=== PATIENT | female | born 1990 | race Caucasian/White ===

== ENCOUNTER 2017-01-21 22:39 | Emergency (ER) | payer OTHER ==
[~2017-01-21] VITALS: Ht 170.2 cm; Wt 55.2 kg
[2017-01-21 22:54] VITALS: TEMP 37.2; Ht 170.2 cm; Wt 55.2 kg
[2017-01-21] MEDS ORDERED: SODIUM CHLORIDE 0.9% 1000ML 2,000 ML IV STA (23:36)
[2017-01-22 00:11] VITALS: O2SAT 99
[2017-01-22 00:22] LABS: BASO % 0.2 %; BASO ABS # 0.02 K/uL (0-0.2); COMPLETE YES; EOS % 0.7 %; HEMATOCRIT 39.9 % (37-47); IG% 0.4 %; LYMPH % 38.6 %; LYMPH ABS # 4.06 K/uL (1.2-3.4); MEAN CELL VOLUME 83.1 fL (80-100); MEAN CORPUSCULAR HEMOGLOBIN 29.4 pg (25-34); MEAN CORPUSCULAR HGB CONC 35.3 g/dl (32-36); MEAN PLATELET VOLUME 9.5 fL (7.4-10.4); MONO % 9.9 %; NEUT % 50.2 %; PLATELET COUNT 317 K/uL (130-400); WHITE BLOOD COUNT 10.52 K/uL (4.8-10.8)
[2017-01-22 00:33] LABS: URINE APPEARANCE CLEAR (CLEAR); URINE BILIRUBIN NEG (NEG); URINE COLOR YELLOW; URINE NITRITE NEG (NEG); URINE PH 7.5 (4.5-7.5); URINE SPECIFIC GRAVITY 1.013 (1.000-1.030); UROBILINOGEN NEG (NEG); ZZUR CULT IF INDIC CLEAN CATCH NO
[2017-01-22 00:34] LABS: MANUAL MICROSCOPIC REQUIRED? NO; REVIEW REQ? NO
[2017-01-22 00:49] LABS: BLOOD UREA NITROGEN 15 mg/dl (7-18); GLUCOSE 97 mg/dl (70-99)
[2017-01-22 00:50] LABS: ALT/SGPT 37 U/L (12-78); AST/SGOT 31 U/L (15-37); BUN/CREATININE RATIO 21.2 (10-20); CALCIUM 8.7 mg/dl (8.5-10.1); CARBON DIOXIDE 24 mmol/L (21-32); CHLORIDE 107 mmol/L (98-107); POTASSIUM 3.4 mmol/L (3.5-5.1); SODIUM 143 mmol/L (136-145)
[2017-01-22 00:55] LABS: ALKALINE PHOSPHATASE 49 U/L (45-117); CKMB/CK RATIO 0.5 (0-3.0)
[2017-01-22] MEDS ORDERED: PROG100C6 PO (01:16)
[2017-01-22] MEDS ORDERED: AMT50 PO (01:17)
[2017-01-22] MEDS ORDERED: ZOLP10TA PO (01:18)
[2017-01-22] MEDS ORDERED: MELA1TAB22 PO (01:19)
[2017-01-22] MEDS ORDERED: PYRI100T4 PO (01:19)
[2017-01-22] MEDS ORDERED: CHOL1000 PO (01:20)
[2017-01-22] MEDS ORDERED: OMEG10007 PO (01:21)
[2017-01-22] MEDS ORDERED: OPTIRAY 320 IV PRN (02:45)
[2017-01-22 03:28] VITALS: BP 120/81; PULSE 88; O2SAT 100
--- NOTE | 2017-01-22 05:28 | EMERGENCY ROOM VISIT NOTE ---
History Report prepared by Blessing: Berenice Betts Under the Supervision of: Dr. Ross Hall M.D. First contact with patient: 23:36 Chief Complaint: COUGH Stated Complaint: CHEST PAIN, DEHYDRATED- 4WKS Nursing Triage Summary: pt reports cold for last 3 weeks. On Prednisone. Developed chest pain on Wednesday, reports she was coughing felt pop in chest. seen at Urgent care Tachycardia and dehydration. 4 weeks History of Present Illness The patient is a 4 week 26 year old female who presents to the Emergency Room with complaints of worsening rib pain over the past 3.5 weeks. The patient states that she has had cold-like symptoms over the past several weeks and has experienced a cough, right sided rib pain and intermittent shortness of breath since the onset of her symptoms. 5 days ago, she was started on Amoxicillin and Prednisone at Urgent Care. Her chest pain worsened 2 days ago so she went to Urgent Care again and was prescribed Vicodin. She was given antibiotic and steroid injections. She felt that her symptoms were improving some until today, when she coughed and felt something "pop" in her ribs. She also developed some left sided rib pain today. Since then, she has felt breathless and occasionally feels her heart racing. She was seen at [facility] and had a chest x-ray. Dr. Ruiz was concerned that she was dehydrated so she was referred to the ER. The patient states that she is currently just under one month . She has not had any vaginal bleeding or vaginal discharge. Pt denies LOC, headache, fevers, chills, diaphoresis, visual changes, neck pain, nausea, vomiting, abdominal pain, back pain, melena, hematochezia, urinary symptoms, numbness, weakness, lymphadenopathy, rash, or other complaints. Source of History: patient Onset: 3.5 weeks ago Position: other (ribs) Timing: worsening Modifying Factors (Worsening): other (coughing) Associated Symptoms: + SOB, + cough Note: Other symptoms: heart racing Review of Systems See HPI for pertinent positives and negatives. A total of ten systems were reviewed and were otherwise negative. Past Medical & Surgical Medical Problems: (1) Endometriosis Family History No pertinent family history stated. Social History Smoking Status: Never Smoker Marital Status: Occupation Status: unemployed Current/Historical Medications Scheduled Amitriptyline Hcl (Elavil), 25 MG PO HS Cholecalciferol (Vitamin D3), 5,000 INTERUNIT PO DAILY Fish Oil (Erie-3), 1 CAP PO DAILY Progesterone (Prometrium), 20 MG PO HS Pyridoxine (Vitamin B6), 100 MG PO DAILY Scheduled PRN Melatonin-Pyridoxine (Melatonin), 3 MG PO HS PRN for Sleep Zolpidem Tartrate (Ambien), 10 MG PO HS PRN for Sleep Allergies Coded Allergies: No Known Allergies (Unverified , 01/22/17) Physical Exam Vital Signs Date Time Temp Pulse Resp B/P Pulse Ox O2 Delivery O2 Flow Rate FiO2 01/22/17 03:28 88 20 120/81 100 Room Air 01/22/17 01:46 94 121/76 100 Room Air 01/22/17 00:12 96 18 117/79 99 Room Air 01/22/17 00:11 99 Room Air 01/22/17 00:11 99 Room Air 01/22/17 00:05 85 01/21/17 22:58 99 Room Air 01/21/17 22:54 37.2 124 16 133/88 99 Room Air Physical Exam GENERAL: Awake, alert, well-appearing, in no distress HENT: Normocephalic, atraumatic. Oropharynx unremarkable. EYES: Normal conjunctiva. Sclera non-icteric. NECK: Supple. No nuchal rigidity. FROM. No JVD. RESPIRATORY: Clear to auscultation. CARDIAC: Borderline tachycardic rate, normal rhythm. Extremities warm and well perfused. Pulses equal. ABDOMEN: Soft, non-distended. No tenderness to palpation. No rebound or guarding. No masses. RECTAL: Deferred. MUSCULOSKELETAL: Bilateral anterior costal margin tenderness, right greater than left. The back is symmetrical on inspection without obvious abnormality. There is no CVA tenderness to palpation. No joint edema. LOWER EXTREMITIES: Calves are equal size bilaterally and non-tender. No edema. No discoloration. NEURO: Normal sensorium. No sensory or motor deficits noted. SKIN: No rash or jaundice noted. Medical Decision & Procedures ER Provider Diagnostic Interpretation: Chest x-ray per my interpretation. Findings: A chest x-ray was performed and revealed no pneumothorax, effusion, infiltrate, pulmonary edema, free air under the diaphragm, or wide mediastinum. Other radiology results as stated below per my review and radiologist interpretation: CTA CHEST: There is no evidence of acute pulmonary embolism or right heart strain. Main pulmonary arteries normal in caliber. Thoracic aorta and heart are normal in size. There is no pericardial effusion. Calcified mediastinal and left hilar lymph nodes are consistent with old granulomatous disease. Lungs are clear. There is no consolidation, effusion, or pneumothorax. Visualized upper abdomen is unremarkable. No acute osseous findings. Radiologist: Pedro Foely MD Laboratory Results 01/22/17 00:10 Red Blood Count 4.80, Mean Corpuscular Volume 83.1, Mean Corpuscular Hemoglobin 29.4, Mean Corpuscular Hemoglobin Concent 35.3, Mean Platelet Volume 9.5, Neutrophils (%) (Auto) 50.2, Lymphocytes (%) (Auto) 38.6, Monocytes (%) (Auto) 9.9, Eosinophils (%) (Auto) 0.7, Basophils (%) (Auto) 0.2, Neutrophils # (Auto) 5.29, Lymphocytes # (Auto) 4.06, Monocytes # (Auto) 1.04, Eosinophils # (Auto) 0.07, Basophils # (Auto) 0.02 01/22/17 00:10 Test 01/21/17 22:55 01/22/17 00:10 Urine Color YELLOW Urine Appearance CLEAR (CLEAR) Urine pH 7.5 (4.5-7.5) Urine Specific [place] 1.013 (1.000-1.030) Urine Protein NEG (NEG) Urine Glucose (UA) NEG (NEG) Urine Ketones NEG (NEG) Urine Occult Blood NEG (NEG) Urine Nitrite NEG (NEG) Urine Bilirubin NEG (NEG) Urine Urobilinogen NEG (NEG) Urine Leukocyte Esterase NEG (NEG) Urine WBC (Auto) 0 /hpf (0-5) Urine RBC (Auto) 0-4 /hpf (0-4) Urine Hyaline Casts (Auto) 0 /lpf (0-5) Urine Epithelial Cells (Auto) 5-10 /lpf (0-5) Urine Bacteria (Auto) NEG (NEG) White Blood Count 10.52 K/uL (4.8-10.8) Red Blood Count 4.80 M/uL (4.2-5.4) Hemoglobin 14.1 g/dL (12.0-16.0) Hematocrit 39.9 % (37-47) Mean Corpuscular Volume 83.1 fL (80-100) Mean Corpuscular Hemoglobin 29.4 pg (25-34) Mean Corpuscular Hemoglobin Concent 35.3 g/dl (32-36) Platelet Count 317 K/uL (130-400) Mean Platelet Volume 9.5 fL (7.4-10.4) Neutrophils (%) (Auto) 50.2 % Lymphocytes (%) (Auto) 38.6 % Monocytes (%) (Auto) 9.9 % Eosinophils (%) (Auto) 0.7 % Basophils (%) (Auto) 0.2 % Neutrophils # (Auto) 5.29 K/uL (1.4-6.5) Lymphocytes # (Auto) 4.06 K/uL (1.2-3.4) Monocytes # (Auto) 1.04 K/uL (0.11-0.59) Eosinophils # (Auto) 0.07 K/uL (0-0.5) Basophils # (Auto) 0.02 K/uL (0-0.2) RDW Standard Deviation 37.0 fL (36.4-46.3) RDW Coefficient of Variation 12.1 % (11.5-14.5) Immature Granulocyte % (Auto) 0.4 % Immature Granulocyte # (Auto) 0.04 K/uL (0.00-0.02) Anion Gap 12.0 mmol/L (3-11) Est Creatinine Clear Calc Drug Dose 104.3 ml/min Estimated GFR () 136.7 Estimated GFR (Non- 117.9 BUN/Creatinine Ratio 21.2 (10-20) Calcium Level 8.7 mg/dl (8.5-10.1) Total Bilirubin 0.4 mg/dl (0.2-1) Direct Bilirubin < 0.1 mg/dl (0-0.2) Aspartate Amino Transf (AST/SGOT) 31 U/L (15-37) Alanine Aminotransferase (ALT/SGPT) 37 U/L (12-78) Alkaline Phosphatase 49 U/L (45-117) Total Creatine Kinase 282 U/L (26-192) Creatine Kinase MB 1.5 ng/ml (0.5-3.6) Creatine Kinase MB Ratio 0.5 (0-3.0) Total Protein 7.4 gm/dl (6.4-8.2) Albumin 3.8 gm/dl (3.4-5.0) Lipase 98 U/L (73-393) Human Chorionic Gonadotropin, Quant 723 mIU/mL Laboratory results reviewed by me Medications Administered Medications (Trade) Dose Ordered Sig/Antwan Route Start Time Stop Time Status Last Admin Dose Admin Sodium Chloride (Nss 1000ml) 2,000 ml @ 999 mls/hr Q2H1M STAT IV 01/21/17 23:36 01/22/17 01:36 DC 01/22/17 00:13 999 MLS/HR ECG Indication: other (rib pain) Rate (beats per minute): 85 Rhythm: normal sinus Findings: no acute ischemic change, no ectopy, other (incomplete right bundle branch block) ED Course 2336: Ordered NSS 2000 ml @ 999 mls/hr IV. 2343: The patient was evaluated in room B10. A complete history and physical exam was performed. 0219: I reassessed the patient. She was feeling better. 0345: I reevaluated the patient. Discussed results and discharge instructions: She verbalized understanding and agreement. The patient is ready for discharge. Medical Decision Triage Nursing notes reviewed. The patient's presentation and history were concerning for respiratory symptoms and chest pain Etiologies such as upper respiratory infection, costochondritis, pleurisy, bronchitis, cardiac ischemia, aortic dissection, pulmonary embolism, pneumonia, pneumothorax, musculoskeletal, infections, gastrointestinal, as well as others were entertained. The patient was evaluated. She was hydrated. She was concerned she may be dehydrated. She had a tender chest wall in the area of her complaints. She had a significant amount of cough. The patient had an unremarkable chest x- ray. Her CBC, chemistry panel and LFTs were unremarkable. The patient's troponin was negative. ECG was unremarkable as well. The patient had a positive d-dimer. Because of this the patient was informed. Risks and benefits were discussed. Following the ACOG guidelines the patient was shielded and underwent CT PE study. Clinically this was negative for any fracture, PE, effusion, or pneumonia. On reassessment the patient was doing better. She was still borderline tachycardic but clinically looked well. I did recommend her holding any additional prednisone given her early and lack of wheezing. She has no history of asthma. The patient will all up closely as an outpatient. I suspect that she has a costochondritis and URI given the history and physical examination in conjunction with her diagnostic testing. By the evaluation outlined above other emergent etiologies such as those listed in the differential, as well as others, were deemed relatively unlikely. The patient and significant other were informed about the findings as listed above. All questions were answered and they were pleased with the treatment. Return instructions were outlined and the patient was discharged in stable condition. The patient was referred to her primary and OB for follow-up for a recheck of the current condition. The chart was completed utilizing [employer] Speech voice recognition software. Grammatical errors, random word insertions, pronoun errors, and incomplete sentences are an occasional consequence of this system due to software limitations, ambient noise, and hardware issues. Any formal questions or concerns about the content, text, or information contained within the body of this dictation should be directly addressed to the physician for clarification. Impression Primary Impression: Left sided chest pain Additional Impressions: Right-sided chest pain Cough Upper respiratory infection First trimester Scribe Attestation The scribe's documentation has been prepared under my direction and personally reviewed by me in its entirety. I confirm that the note above accurately reflects all work, treatment, procedures, and medical decision making performed by me. Departure Information Dispostion Home / Self-Care Referrals Kerrie Blackburn M.D. (PCP) Patient Instructions My [facility] Additional Instructions CHEST PAIN INSTRUCTIONS: Acetaminophen(Tylenol) may be used for fever or pain. Use 1000mg every six hours as needed. Avoid using more than 4000mg in a 24 hour period. Rest and drink plenty of fluids as tolerated. It Is recommended to stop the prednisone given your . Continue other current medications. Avoid strenuous activities and anything that worsens your pain. Resume normal activities once your symptoms resolve. Return to the ER immediately for worsening or persistent chest pain, abdominal pain, vomiting, fevers, chest pains, difficulty breathing, worsening of your condition, or as needed. Follow up with your primary physician in 2-3 days for a recheck of your current condition. Problem Qualifiers
--- NOTE | 2017-01-22 07:06 | DIAGNOSTIC IMAGING REPORT ---
CHEST CTA for PULMONARY ARTERIES CT DOSE: 209.45 mGy.cm HISTORY: Chest pain dyspnea TECHNIQUE: Multiaxial CT images of the chest were performed following the intravenous administration of contrast to evaluate the pulmonary arteries. Maximal intensity projection images were also obtained. COMPARISON STUDY: None. FINDINGS: There is a normal caliber thoracic aorta with no evidence for dissection. There is no evidence for pulmonary embolus. No pleural effusions. No pneumothorax. The liver and spleen are unremarkable. No mediastinal or hilar lymphadenopathy. The central airways are patent. The lungs are clear. IMPRESSION: No evidence for pulmonary embolus. Electronically signed by: Balaji Thorne M.D. 01/22/2017 7:04 AM Dictated Date/Time: 01/22/2017 7:02 AM
--- NOTE | 2017-01-22 08:09 | DIAGNOSTIC IMAGING REPORT ---
CHEST ONE VIEW PORTABLE CLINICAL HISTORY: CHEST PAIN-shield dyspnea COMPARISON STUDY: No previous studies for comparison. FINDINGS: The bones soft tissues and hemidiaphragms are normal. The cardiomediastinal silhouette is normal. The lungs are clear. The pulmonary vasculature is normal. IMPRESSION: Negative chest. Electronically signed by: Balaji Thorne M.D. 01/22/2017 8:07 AM Dictated Date/Time: 01/22/2017 8:07 AM
== END 2017-01-22 03:50 | disposition home or self-care (01) ==
LOC: C.EDB 22:40
DX: O26.891 Other specified pregnancy related conditions, first trimester (principal); R07.89 Other chest pain; R05 Cough; O99.511 Diseases of the respiratory system complicating pregnancy, first trimester; J06.9 Acute upper respiratory infection, unspecified; Z3A.01 Less than 8 weeks gestation of pregnancy; N80.9 Endometriosis, unspecified

== ENCOUNTER → 2017-02-18 | Outpatient (CLI) | payer OTHER ==
[~2017-02-18] MED LIST: AMT50 PO; CHOL1000 PO; MELA1TAB22 PO; OMEG10007 PO; PROG100C6 PO; PYRI100T4 PO; ZOLP10TA PO
--- NOTE | 2017-02-18 13:37 | DIAGNOSTIC IMAGING REPORT ---
Limited ultrasound <14 WKS SINGLE CLINICAL HISTORY: PREG WITH INCONCLUSIVE VIABILITY TECHNIQUE: Ultrasound COMPARISON STUDY: None FINDINGS: Single, viable intrauterine . heart rate is confirmed at 1 76 bpm. Estimated gestational age is 10 weeks 4 days. [place] contraction. IMPRESSION: Single, viable intrauterine estimated at 10 weeks 4 days gestational age. Electronically signed by: Balaji Thorne M.D. 02/18/2017 1:36 PM Dictated Date/Time: 02/18/2017 1:34 PM
== END | disposition home or self-care (01) ==
LOC: C.ULTR 13:00
PROVIDERS: ATTEND Obstetrics & Gynecology
DX: O36.80X9 Pregnancy with inconclusive fetal viability, other fetus (principal); Z3A.10 10 weeks gestation of pregnancy

== ENCOUNTER 2025-11-20 16:13 | Inpatient (IN) ==
[2025-11-20 16:46] LABS: Appearance Urine Cloudy (Clear); Bacteria Urine Automated None Seen (None Seen); Cast Urine Automated 0-2 /lpf (0-2); Glucose Urine UA Negative (Negative); WBC Urine Automated 0-5 /hpf (0-5)
[2025-11-20 16:56] LABS: Hematocrit (blood only) 37.2 % (37.0-47.0); Hemoglobin 13.2 g/dL (12.0-16.0); Immature Granulocytes # (auto) 0.03 K/uL (0.01-0.20); Immature Granulocytes % (auto) 0.3 %; Mean Corpuscular Hemoglobin 30.0 pg (25.0-34.0); Mean Corpuscular Volume 84.5 fL (80.0-100.0); Platelet Count 344 K/uL (130-400); RDW Standard Deviation 36.1 fL (36.4-46.3); Red Blood Count 4.40 M/uL (4.20-5.40); White Blood Count 8.80 K/ul (4.8-10.8)
--- NOTE | 2025-11-20 16:58 | Emergency Department Note ---
Impression & Plan Pneumoperitoneum, Postoperative fever ED Provider Note NAME: STEFANIE NARVAEZ AGE: 35 SEX: F : 1990 ARRIVES VIA: Walk-In INFORMANT: Patient, ED PROVIDER(S): Remy Orosco DO CHIEF COMPLAINT: Fever HPI: The patient is a 35-year-old female who presented to the emergency department for an evaluation of pain and fever. The patient is 7 days postop laparoscopic hysterectomy. She went to a specialist in [place] because of concerns of endometriosis. As it turned out she had fibroid uterus and had a hysterectomy. She also had her appendix out at the same time. The patient started having pain in her lower abdomen as well as fever over the last 48 hours. The patient presented to the emergency department for further evaluation. ROS: See above HPI for pertinent positives & negatives. A total of 10 systems reviewed and were otherwise negative. PAST MEDICAL HISTORY: See Below PAST SURGICAL HISTORY: See Below FAMILY HISTORY: See Below SOCIAL HISTORY: See Below HOME MEDICATIONS: See Below ALLERGIES: See Below VITALS: See Below PHYSICAL EXAMINATION: GENERAL: The patient is awake and answers questions appropriately. She does appear uncomfortable. EYES: The conjunctivae are clear. The pupils are round and reactive. EARS, NOSE, MOUTH AND THROAT: The nose is without any evidence of any deformity. NECK: The neck is nontender and supple. RESPIRATORY: Normal respiratory effort is noted there is no evidence of wheezing rhonchi or rales CARDIOVASCULAR: Regular rate and rhythm noted there no murmurs rubs or gallops normal S1 normal S2. GASTROINTESTINAL: The abdomen is distended. There is suprapubic tenderness to palpation which is moderate. Surgical sites are ecchymotic but do not show any drainage or erythema. MUSCULOSKELETAL/EXTREMITIES: There is no evidence of gross deformity full range of motion is noted in the hips and shoulders. SKIN: There is no obvious evidence of any rash. There are no petechiae, pallor or cyanosis noted. NEUROLOGIC: Patient is awake alert and oriented x3 MEDICAL DECISION MAKING: The patient is a 35-year-old female who is status post laparoscopic hysterectomy as well as appendectomy for what was suspected to be endometriosis but turned out to be a fibroid uterus. The patient was feeling well until the last few days. She started noticing pain with standing upright. She also had shoulder pain. The patient also had a fever. She was tachycardic on initial evaluation. The patient did have significant abdominal pain on palpation. She was found to have pneumoperitoneum. There was no fluid collection or any abscesses. I discussed the patient's laboratory and radiographic studies with her and her significant other. She was treated with IV fluids and IV pain medication. She was also treated with IV antibiotics. Given her findings I discussed her condition with the on-call general surgical group. I also discussed her condition with the on-call [facility] hospitalist group. They have agreed to evaluate the patient in the emergency department. Triage Nursing notes reviewed. Prior medical records reviewed Vital Signs: reviewed and remarkable for tachycardia. Differential diagnosis: Differential diagnosis could include postoperative bleeding, postoperative infection, abscess, injury to adjacent structures, community-acquired infection and other differential diagnoses were considered. ER treatment provided: See below Diagnostics interpreted by me: ECG: none Cardiac Monitoring: An order was placed for continuous cardiac monitoring. The monitor shows a rate of 90 bpm with sinus rhythm. Laboratory studies: As stated above and show below. Imaging studies: See below. Radiographic imaging was reviewed by myself Consultation(s): I discussed this case with Dr. Reynolds who is on-call for general surgery. I discussed this case with Dr. Melgoza who is on-call for the [facility] hospitalist group. Past Med/Surg History Problem List (Updated 11/20/25 @ 23:12 by Remy Orosco DO) Postoperative fever (Acute) Pneumoperitoneum (Acute) Isa-Danlos syndrome Status post laparoscopic appendectomy Status post abdominal hysterectomy Peritonitis Postoperative fever Postoperative infection Endometriosis (Chronic) Cough (Acute) First trimester (Acute) Left sided chest pain (Acute) Right-sided chest pain (Acute) Upper respiratory infection (Acute) Medical History Endometriosis Mittelschmerz Pelvic floor dysfunction Vaginal lesion SOB (shortness of breath) Calcified lymph nodes Chest wall mass Hay fever Social History Smoking Status: Never smoker Preferred Language: Japanese Feels Safe at Home: Yes Allergies Allergies Allergy/AdvReac Type Severity Reaction Status Date / Time No Known Drug Allergies Allergy Verified 07/07/19 11:15 Home Meds Home Medications Medication Instructions Recorded Confirmed multivitamin (Daily Multi-Vitamin 1 tab PO DAILY 02/19/20 11/20/25 tablet) amoxicillin 875 mg-potassium 1 tab PO BID 11/20/25 11/20/25 clavulanate 125 mg tablet metronidazole 500 mg tablet 500 mg PO BID 11/20/25 11/20/25 Results & Data (ED) Vital Signs Vital Signs - 24 hr 11/20/25 16:16 11/20/25 16:43 11/20/25 16:50 Temperature 37.6 C H 37.3 C Temperature Source Oral Oral Pulse Rate 109 H 102 H Pulse Rate [Apical] 98 H Respiratory Rate 18 14 Respiratory Effort / Characteristics Non-Labored Spontaneous Non-Labored Spontaneous Respiratory Depth Normal Normal Respiratory Pattern Regular Blood Pressure 118/79 Blood Pressure [Left Arm] 122/84 Blood Pressure Mean 92 Blood Pressure Mean [Left Arm] 96 Blood Pressure Position Sitting Pulse Oximetry 99 99 Oxygen Delivery Method Room Air Room Air Sepsis Recent Fever Within 48 Hours Yes Sepsis New/Unexplained Change in Mental Status No Sepsis Action Taken by Nursing No Action Required 11/20/25 17:13 11/20/25 18:53 11/20/25 19:13 Temperature 37.5 C Temperature Source Oral Pulse Rate Pulse Rate [Apical] 87 83 97 H Respiratory Rate 17 22 17 Respiratory Effort / Characteristics Non-Labored Spontaneous Non-Labored Spontaneous Non-Labored Spontaneous Respiratory Depth Normal Normal Normal Respiratory Pattern Regular Regular Regular Blood Pressure Blood Pressure [Left Arm] 134/84 125/87 118/71 Blood Pressure Mean Blood Pressure Mean [Left Arm] 100 99 86 Blood Pressure Position Pulse Oximetry 99 98 98 Oxygen Delivery Method Room Air Room Air Room Air Sepsis Recent Fever Within 48 Hours Sepsis New/Unexplained Change in Mental Status Sepsis Action Taken by Nursing 11/20/25 19:30 Temperature Temperature Source Pulse Rate 93 H Pulse Rate [Apical] Respiratory Rate 20 Respiratory Effort / Characteristics Respiratory Depth Respiratory Pattern Blood Pressure 120/77 Blood Pressure [Left Arm] Blood Pressure Mean 91 Blood Pressure Mean [Left Arm] Blood Pressure Position Pulse Oximetry 96 Oxygen Delivery Method Sepsis Recent Fever Within 48 Hours Sepsis New/Unexplained Change in Mental Status Sepsis Action Taken by [facility] Medications Current Medication List: was personally reviewed by me Laboratory Data Attestation: I reviewed the patient's lab results. 11/20/25 16:23 11/20/25 16:23 Lab Results 11/20/25 11/20/25 Range/Units 16:23 17:24 WBC 8.80 (4.8-10.8) K/ul RBC 4.40 (4.20-5.40) M/uL Hgb 13.2 (12.0-16.0) g/dL Hct 37.2 (37.0-47.0) % MCV 84.5 (80.0-100.0) fL MCH 30.0 (25.0-34.0) pg MCHC 35.5 (32.0-36.0) g/dL RDW Std Deviation 36.1 L (36.4-46.3) fL RDW Coeff of Ellen 11.8 (11.5-14.5) % Plt Count 344 (130-400) K/uL MPV 9.7 (9.4-12.4) fL Immature Gran % (Auto) 0.3 % Neut % (Auto) 74.8 % Lymph % (Auto) 13.4 % [place] % (Auto) 7.7 % Eos % (Auto) 3.5 % Baso % (Auto) 0.3 % Neut # (Auto) 6.57 H (1.40-6.50) K/uL Lymph # (Auto) 1.18 L (1.20-3.40) K/uL [place] # (Auto) 0.68 H (0.11-0.59) K/uL Eos # (Auto) 0.31 (0.00-0.50) K/uL Baso # (Auto) 0.03 (0.00-0.20) K/uL Immature Gran # (Auto) 0.03 (0.01-0.20) K/uL VBG pH 7.43 H (7.36-7.41) VBG pCO2 45 (38-50) mmHg VBG pO2 42 mmHg VBG HCO3 30 mmol/L VBG O2 Saturation 69.5 % VBG Base Excess 4.9 mEq/L Sodium 140 (136-145) mmol/L Potassium 3.9 (3.5-5.1) mmol/L Chloride 104 (98-107) mmol/L Carbon Dioxide 28 (21-32) mmol/L Anion Gap 8 (3-11) BUN 11 (6-23) mg/dl Creatinine 0.66 (0.6-1.2) mg/dl Est Cr Clr Drug Dosing 105.6 ml/min eGFR 115.79 BUN/Creatinine Ratio 16.7 (10-20) Glucose 118 H (70-99(Fasting)) mg/dl Calcium 9.3 (8.6-10.3) mg/dl Total Bilirubin 0.6 (0.2-1.0) mg/dl AST 20 (13-39) U/L ALT 18 (7-52) U/L Alkaline Phosphatase 43 (34-104) U/L Total Protein 7.3 (6.0-8.3) gm/dl Albumin 4.2 (3.4-5.0) gm/dl Globulin 3.1 (2.5-4.0) gm/dl Albumin/Globulin Ratio 1.4 (0.9-2) Procalcitonin < 0.02 (0-0.5) ng/ml Urine Color Yellow Urine Appearance Cloudy A (Clear) Urine pH 7.5 (4.5-7.5) Ur Specific [place] 1.013 (1.000-1.030) Urine Protein Negative (Negative) Urine Glucose (UA) Negative (Negative) Urine Ketones Negative (Negative) Urine Blood Negative (Negative) Urine Nitrite Negative (Negative) Urine Bilirubin Negative (Negative) Urine Urobilinogen Negative (Negative) Ur Leukocyte Esterase Trace H (Negative) Urine WBC (Auto) 0-5 (0-5) /hpf Urine RBC (Auto) 6-10 H (0-2) /hpf U Hyaline Cast (Auto) 0-2 (0-2) /lpf U Epithel Cells (Auto) 3-5 H (0-2) /hpf Urine Bacteria (Auto) None Seen (None Seen) Urine Comment SARS-CoV-2 (PCR) NEGATIVE (Negative) Influenza Type A (PCR) Negative (Neg) Influenza Type B (PCR) Negative (Neg) RSV (RT-PCR) Negative (Neg) Administered Medications Discontinued Medications Hydromorphone HCl (Hydromorphone Inj 0.5 Mg/0.5 Ml Syr) 0.5 mg IV Q15M PRN PRN Reason: Pain Stop: 12/04/25 19:04 Last Admin: 11/20/25 19:14 Dose: 0.5 mg Documented By: yumiko Sodium Chloride (Nss) 1,000 mls @ 999 mls/hr IV .Q1H1M ONE Stop: 11/20/25 17:51 Last Infusion: 11/20/25 18:29 Dose: Infused Documented By: Admin: 11/20/25 17:15 Dose: 999 mls/hr Documented By: yumiko Acetaminophen (Ofirmev) 1,000 mg in 100 mls @ 400 mls/hr IV NOW STA Stop: 11/20/25 17:05 Last Infusion: 11/20/25 18:29 Dose: Infused Documented By: Admin: 11/20/25 17:17 Dose: 400 mls/hr Documented By: yumiko Piperacillin Sod/Tazobactam Sod (Zosyn) 4.5 gm in 100 mls @ 200 mls/hr IV NOW ONE; Protocol Stop: 11/20/25 18:29 Last Infusion: 11/20/25 19:29 Dose: Infused Documented By: yumiko Infusion: 11/20/25 19:18 Dose: 200 mls/hr Documented By: yumiko Infusion: 11/20/25 19:13 Dose: 0 mls/hr Documented By: yumiko Admin: 11/20/25 18:52 Dose: 200 mls/hr Documented By: yumiko Lactated Ringer's (Lr) 1,000 mls @ 125 mls/hr IV .Q8H CECILIA Stop: 11/23/25 22:02 Last Admin: 11/20/25 22:52 Dose: Not Given Documented By: MARYSE Ioversol (Optiray 320 100ml) 93 ml IV ONCE ONE Stop: 11/20/25 17:52 Last Admin: 11/20/25 17:53 Dose: 93 ml Documented By: COLTEN Morphine Sulfate (Morphine Sulfate 4 Mg/Ml 1 Ml Carp\Vial) 4 mg IV NOW STA Stop: 11/20/25 16:52 Last Admin: 11/20/25 17:18 Dose: Not Given Documented By: yumiko Ondansetron HCl (Ondansetron Inj 2 Mg/Ml 2 Ml Vial) 4 mg IV NOW STA Stop: 11/20/25 16:52 Last Admin: 11/20/25 17:18 Dose: Not Given Documented By: yumiko Imaging Data Attestation: I personally reviewed and interpreted this imaging study as follows: My Impression: CT of the abdomen and pelvis was obtained in the emergency department. My interpretation is pneumoperitoneum noted, final report below. Radiologist's Impression: Abdomen/Pelvis CT 11/20/25 16:52 EXAM: CT Abdomen and Pelvis With Intravenous Contrast INDICATION: Fever. 1 week postoperative hysterectomy. TECHNIQUE: Axial computed tomography images of the abdomen and pelvis with intravenous contrast. Sagittal and coronal reformatted images were created and reviewed. This CT exam was performed using one or more of the following dose reduction techniques: automated exposure control, adjustment of the mA and/or kV according to patient size, and/or use of iterative reconstruction technique. CONTRAST: 93 ml of Optiray 320 was administered intravenously. COMPARISON: No relevant prior studies available. FINDINGS: Limitations: None. Lung bases: No abnormality noted. Pleural space: No visualized pleural effusion or pneumothorax. Heart: No abnormality noted. Mediastinum: No abnormality noted. ABDOMEN: Liver: No abnormality noted. Gallbladder and bile ducts: Gallstone noted. Pancreas: Homogeneous enhancement. No mass, inflammation or ductal dilation. Spleen: No acute abnormality noted. Adrenals: No acute abnormality noted. Kidneys and ureters: Normal enhancement. No mass, hydronephrosis or visualized stone. Stomach and bowel: No distension or mucosal thickening. No inflammation noted. PELVIS: Appendix: Moderate amounts of stool throughout the colon. There is no definite obstruction. The appendix is not visualized and may have been removed. This the terminal ileum appears somewhat thickened but is collapsed. Bladder: No filling defects to suggest mass or large stone. No inflammation. Reproductive: The uterus has been removed. There is symmetrical appearance of the vaginal cuff. No fluid collection in the operative bed. There is a small collapsed follicle on the left ovary. ABDOMEN and PELVIS: Intraperitoneal space: Free intraperitoneal air noted slightly greater than typical for 1 week postop. Bones/joints: No acute changes. Soft tissues: No acute abnormality noted. Vasculature: No abdominal aortic aneurysm. Lymph nodes: No pathologically enlarged lymph nodes. IMPRESSION: 1. There is no fluid collection noted in the operative bed following hysterectomy. 2. Free intraperitoneal air slightly greater than expected 1 week postop. Correlate with surgical history. If there was any bowel injury, perforation should be considered. 3. The appendix is not identified and may have been removed. What appears to be the terminal ileum is mildly thickened but it is incompletely distended and suboptimally assessed. 4. Cholelithiasis. ACT 112: N/A Electronically signed by Anuja Blokc 11-20-2025 6:56 PM Discharge Plan Visit Data Chief Complaint: Fever Stated Complaint: HIGH HEART RATE, FEVER, SURGERY LAST WEEK ED Provider: Remy Orosco Discharge Problem: Pneumoperitoneum, Postoperative fever Patient Disposition: Admitted As Inpatient Condition: Fair Discharge Instructions Interventions: ED Discharge Assessment Last Done: 11/20/25 21:32
[2025-11-20 17:13] LABS: Alanine Aminotransferase 18.0 U/L (7-52); Albumin Globulin Ratio 1.4 (0.9-2); Albumin Level 4.2 gm/dl (3.4-5.0); Alkaline Phosphatase 43.0 U/L (34-104); Anion Gap 8.0 (3-11); Bilirubin,Total 0.6 mg/dl (0.2-1.0); Blood Urea Nitrogen 11.0 mg/dl (6-23); Calcium 9.3 mg/dl (8.6-10.3); Carbon Dioxide 28.0 mmol/L (21-32); Chloride 104.0 mmol/L (98-107); Creatinine Clr Calc Pharmacy 105.6 ml/min; Globulin 3.1 gm/dl (2.5-4.0); Glucose 118.0 mg/dl (70-99(Fasting)); Potassium 3.9 mmol/L (3.5-5.1); Sodium 140.0 mmol/L (136-145); Total Protein 7.3 gm/dl (6.0-8.3)
[2025-11-20] MEDS: SODIUM CHLORIDE 0.9% 1,000 ML IV ONE (17:15)
[2025-11-20] MEDS: ACETAMINOPHEN 1,000 MG/100 ML VIAL IV STA (17:17)
[2025-11-20] MEDS: MoRPHine SULFATE 4 MG/ML 1 ML CARP\\VIAL IV STA (17:18)
[2025-11-20] MEDS: ONDANSETRON INJ 2 MG/ML 2 ML VIAL IV STA (17:18)
[2025-11-20 17:27] LABS: Influenza A virus by PCR Negative (Neg); Influenza B virus by PCR Negative (Neg); SARS CoV2 RNA(COVID-19) Ceph NEGATIVE (Negative)
[2025-11-20 17:29] LABS: Base Excess VBG 4.9 mEq/L; HCO3 VBG 30 mmol/L; Oxygen Saturation VBG 69.5 %; PCO2 VBG 45 mmHg (38-50); PO2 VBG 42 mmHg; pH VBG 7.43 (7.36-7.41)
[2025-11-20] MEDS: OPTIRAY 320 100ml IV ONE (17:53)
[2025-11-20] MEDS: PIPERACILLIN/TAZOBACTAM 4.5 GM/100 ML BAG IV ONE (18:52)
--- NOTE | 2025-11-20 18:57 | CT Scan Report ---
EXAM: CT Abdomen and Pelvis With Intravenous Contrast INDICATION: Fever. 1 week postoperative hysterectomy. TECHNIQUE: Axial computed tomography images of the abdomen and pelvis with intravenous contrast. Sagittal and coronal reformatted images were created and reviewed. This CT exam was performed using one or more of the following dose reduction techniques: automated exposure control, adjustment of the mA and/or kV according to patient size, and/or use of iterative reconstruction technique. CONTRAST: 93 ml of Optiray 320 was administered intravenously. COMPARISON: No relevant prior studies available. FINDINGS: Limitations: None. Lung bases: No abnormality noted. Pleural space: No visualized pleural effusion or pneumothorax. Heart: No abnormality noted. Mediastinum: No abnormality noted. ABDOMEN: Liver: No abnormality noted. Gallbladder and bile ducts: Gallstone noted. Pancreas: Homogeneous enhancement. No mass, inflammation or ductal dilation. Spleen: No acute abnormality noted. Adrenals: No acute abnormality noted. Kidneys and ureters: Normal enhancement. No mass, hydronephrosis or visualized stone. Stomach and bowel: No distension or mucosal thickening. No inflammation noted. PELVIS: Appendix: Moderate amounts of stool throughout the colon. There is no definite obstruction. The appendix is not visualized and may have been removed. This the terminal ileum appears somewhat thickened but is collapsed. Bladder: No filling defects to suggest mass or large stone. No inflammation. Reproductive: The uterus has been removed. There is symmetrical appearance of the vaginal cuff. No fluid collection in the operative bed. There is a small collapsed follicle on the left ovary. ABDOMEN and PELVIS: Intraperitoneal space: Free intraperitoneal air noted slightly greater than typical for 1 week postop. Bones/joints: No acute changes. Soft tissues: No acute abnormality noted. Vasculature: No abdominal aortic aneurysm. Lymph nodes: No pathologically enlarged lymph nodes. IMPRESSION: 1. There is no fluid collection noted in the operative bed following hysterectomy. 2. Free intraperitoneal air slightly greater than expected 1 week postop. Correlate with surgical history. If there was any bowel injury, perforation should be considered. 3. The appendix is not identified and may have been removed. What appears to be the terminal ileum is mildly thickened but it is incompletely distended and suboptimally assessed. 4. Cholelithiasis. ACT 112: N/A Electronically signed by Anuja Block 11-20-2025 6:56 PM
[2025-11-20] MEDS: HYDROmorphone INJ 0.5 MG/0.5 ML SYR IV PRN (19:14)
--- NOTE | 2025-11-20 20:06 | History & Physical Report ---
Date of Service November 20, 2025 Assessment & Plan (1) Postoperative infection: (2) Postoperative fever: (3) Peritonitis: (4) Status post abdominal hysterectomy: (5) Status post laparoscopic appendectomy: (6) Endometriosis: (7) Isa-Danlos syndrome: Plan Patient 35-year-old female status post laparoscopic abdominal hysterectomy and appendectomy On November 15 in [facility]. Presents with low-grade fever and increasing abdominal pain. High concern for postoperative abdominal/pelvic infection and impending sepsis. Patient requires hospital level care and intervention and at risk for worsening of her condition. Requires IV antibiotics, fluids, specialty evaluation/surgical evaluation. Admit to the MedSurg unit IV fluids IV antibiotics, Zosyn Surgical consultation Monitor laboratory studies Blood cultures Pain control at bedside updated to plan of care as well History of Present Illness Chief Complaint: Postoperative abdominal pain and low-grade fevers Primary Care Provider: Leonarda Mcfarlane DO Patient is 35-year-old female who has a history of endometriosis and Isa- Danlos syndrome. She reportedly has had 2 surgical interventions for endometriosis in the past. She sought more advanced and expert opinion on her endometriosis and went to [facility] for evaluation. Patient underwent laparoscopic surgical intervention last . She was under the impression that if she was going to be treated for endometriosis more definitively Her ultimate post surgical diagnosis was a fibroid uterus and she had a hysterectomy in addition to appendectomy. She was discharged from the hospital on the evening of her surgery. However, her surgeon recommended that they stay in the [place] area until Wednesday or approximately 72 hours after her surgery. Initially she seemed to be doing well postoperatively, however, Wednesday evening while still in [place] that she started to run a low-grade fever and seemed to have a bit more abdominal pain. They called her surgeon Wednesday morning. They report that they could not be seen in the office but the surgeon did call in amoxicillin and metronidazole. They picked up those prescriptions and drove home. She was just started on the antibiotics yesterday afternoon. Patient continued to have low-grade fevers. Seemed to be somewhat drowsy and not fully recuperated from anesthesia. And it was recommended that by her outpatient provider here locally that she be seen in the emergency room. In the emergency room CT of the abdomen question whether there was some increased air in the abdomen much more than would be expected postoperatively at this point. There is also some fluid collection and patient did have some peritoneal signs. Patient's WBCs were within normal limits other laboratory studies were unrevealing. She was referred to our service for management of concern for postoperative abdominal infection and impending sepsis. At time of my evaluation patient did look somewhat ill and fatigued. She reports that the highest her fever has been at home was 100.6 degrees. She does feel as though her abdominal pain has been increasing since Wednesday afternoon. She states that she has been able to eat and drink fairly normal so little bit decreased appetite compared to her usual. Does not have any increased pain when she eats. She said she has had a few bowel movements since her surgery. No change in her bladder habits. She has not seen any blood in her stool. She has not had any significant amount of vaginal discharge or bleeding. She reports that occasionally she is seeing a little bit of pink discharge on the toilet tissue. No swelling in her hands arms legs or feet. She has some chronic joint pains related to her Isa-Danlos syndrome but this has not changed since surgery. Allergies Allergy/AdvReac Type Severity Reaction Status Date / Time No Known Drug Allergies Allergy Verified 07/07/19 11:15 Home Medications Medication Instructions Recorded Confirmed Type multivitamin (Daily Multi-Vitamin 1 tab PO DAILY 02/19/20 11/20/25 History tablet) amoxicillin 875 mg-potassium 1 tab PO BID 11/20/25 11/20/25 History clavulanate 125 mg tablet metronidazole 500 mg tablet 500 mg PO BID 11/20/25 11/20/25 History Past Med/Surg History Problem List (Updated 11/20/25 @ 20:03 by Timothy Garcia DO) Isa-Danlos syndrome Status post laparoscopic appendectomy Status post abdominal hysterectomy Peritonitis Postoperative fever Postoperative infection Endometriosis (Chronic) Cough (Acute) First trimester (Acute) Left sided chest pain (Acute) Right-sided chest pain (Acute) Upper respiratory infection (Acute) Medical History Endometriosis Mittelschmerz Pelvic floor dysfunction Vaginal lesion SOB (shortness of breath) Calcified lymph nodes Chest wall mass Hay fever Social History Smoking Status: Never smoker Preferred Language: Taiwanese Feels Safe at Home: Yes Review of Systems Review of Systems: Pertinent positive and negative review of systems as mentioned in the HPI Physical Exam Physical Exam: Constitutional: Alert, ill in appearance, mildly toxic HEENT: Mucous membranes moist. Sclera clear Neck: Soft, no adenopathy Lungs: Decreased breath sounds, no wheezes, no rales CV: S1-S2, regular Abdomen: Soft, suprapubic tenderness, positive rebound, mild guarding, no masses, mild distention, laparoscopic incisions healing appropriately, no evidence of significant inflammation, erythema, Steri-Strips in place, Extremities: No significant edema Musculoskeletal: No significant joint tenderness Neuro: No focal deficits, slightly drowsy Psych: Cooperative, normal mood Results & Data Results & Data Vital Signs (Past 12 Hours) Vital Signs Temp Pulse Pulse Resp BP BP Pulse Ox 11/20/25 19:13 97 H 17 118/71 98 11/20/25 18:53 37.5 C 83 22 125/87 98 11/20/25 17:13 87 17 134/84 99 11/20/25 16:50 102 H 11/20/25 16:43 37.3 C 98 H 14 122/84 99 11/20/25 16:16 37.6 C H 109 H 18 118/79 99 O2 Del Method 11/20/25 19:13 Room Air 11/20/25 18:53 Room Air 11/20/25 17:13 Room Air 11/20/25 16:50 11/20/25 16:43 Room Air 11/20/25 16:16 Room Air Diagnostic Findings Reviewed imaging, laboratory and diagnostic studies. Pertinent findings as below. WBCs 8.8 Hemoglobin 13.2 Hematocrit 37.2 Platelets 344 Venous pH unremarkable Electrolytes within normal range Creatinine 0.66 LFTs within normal range Urinalysis unremarkable COVID, influenza, RSV negative CT of the abdomen pelvis with IV contrast shows no significant fluid collection in the operative bed following hysterectomy, free intraperitoneal air slightly greater than expected postoperatively. Terminal ileum slightly thickened. Evidence of recent appendectomy Code Status & VTE Plan VTE Prophylaxis Plan VTE Prophylaxis will be ordered: Yes
--- NOTE | 2025-11-20 20:56 | Surgery Consultation ---
Date of Consultation November 20, 2025 Assessment & Plan (1) Status post abdominal hysterectomy: (2) Status post laparoscopic appendectomy: (3) Postoperative fever: (4) Postoperative infection: Plan 35-year-old woman 6 days status post laparoscopic hysterectomy and appendectomy with gynecology in [facility]. She appears to have postoperative infection. On CT scan, there is slightly more air than would normally be found post procedure, however her abdomen is soft with no peritoneal signs. White count is normal. Vital signs are normal. There are no urgent surgical indications from a general surgery standpoint at this time. She will need to be seen by gynecology for further workup following a clearly gynecological surgery. We will continue to follow. History of Present Illness Reason for Consultation: Postoperative infection/pneumoperitoneum Requesting Physician: ED physician Attending Physician: ED physician History of Present Illness 35-year-old woman presents 6 days status post laparoscopic hysterectomy with appendectomy in [place]. Following the surgery, she was feeling lightheaded and dizzy and "out of it ". She has been having some abdominal pain. She developed a fever 2 days ago which has continued. She just returned from [place] yesterday and came to the emergency department. CT scan demonstrates slightly more air than expected for postoperative laparoscopic surgery. White blood cell Count is normal. Allergies Allergy/AdvReac Type Severity Reaction Status Date / Time No Known Drug Allergies Allergy Verified 07/07/19 11:15 Home Medications Medication Instructions Recorded Confirmed Type multivitamin (Daily Multi-Vitamin 1 tab PO DAILY 02/19/20 11/20/25 History tablet) amoxicillin 875 mg-potassium 1 tab PO BID 11/20/25 11/20/25 History clavulanate 125 mg tablet metronidazole 500 mg tablet 500 mg PO BID 11/20/25 11/20/25 History Patient History Medical History Endometriosis Aisha Pelvic floor dysfunction Vaginal lesion SOB (shortness of breath) Calcified lymph nodes Chest wall mass Hay fever Social History Smoking Status: Never smoker Preferred Language: Vietnamese Feels Safe at Home: Yes Review of Systems Review of Systems: All systems reviewed & are unremarkable except as noted in HPI & below Physical Exam Constitutional: WD/WN, vitals as above Eyes: PERRL, conjunctivae normal, anicteric sclerae Neck: trachea midline, no thyromegaly Respiratory: normal respiratory effort; no respiratory distress and no labored breathing Cardiovascular: Rate/Rhythm: regular rate and regular rhythm Gastrointestinal (Abdomen): Inspection/Auscultation: abdomen normal to inspection and + abdomen distended ( mild) Percussion/Palpation: + abdomen tender ( mild diffuse) and abdomen soft; no guarding and abdomen not rigid Skin: no rashes, warm and dry Psychiatric: A+Ox3, euthymic affect Results & Data Vital Signs (Past 12 Hours) Vital Signs Temp Pulse Pulse Resp BP BP Pulse Ox 11/20/25 20:48 96 H 11/20/25 20:00 100 H 17 122/81 96 11/20/25 19:30 93 H 20 120/77 96 11/20/25 19:13 97 H 17 118/71 98 11/20/25 18:53 37.5 C 83 22 125/87 98 11/20/25 17:13 87 17 134/84 99 11/20/25 16:50 102 H 11/20/25 16:43 37.3 C 98 H 14 122/84 99 11/20/25 16:16 37.6 C H 109 H 18 118/79 99 O2 Del Method 11/20/25 20:48 11/20/25 20:00 11/20/25 19:30 11/20/25 19:13 Room Air 11/20/25 18:53 Room Air 11/20/25 17:13 Room Air 11/20/25 16:50 11/20/25 16:43 Room Air 11/20/25 16:16 Room Air Laboratory Results 11/20/25 11/20/25 Range/Units 17:24 16:23 WBC 8.80 (4.8-10.8) K/ul RBC 4.40 (4.20-5.40) M/uL Hgb 13.2 (12.0-16.0) g/dL Hct 37.2 (37.0-47.0) % MCV 84.5 (80.0-100.0) fL MCH 30.0 (25.0-34.0) pg MCHC 35.5 (32.0-36.0) g/dL RDW Std Deviation 36.1 L (36.4-46.3) fL RDW Coeff of Ellen 11.8 (11.5-14.5) % Plt Count 344 (130-400) K/uL MPV 9.7 (9.4-12.4) fL Immature Gran % (Auto) 0.3 % Neut % (Auto) 74.8 % Lymph % (Auto) 13.4 % [place] % (Auto) 7.7 % Eos % (Auto) 3.5 % Baso % (Auto) 0.3 % Neut # (Auto) 6.57 H (1.40-6.50) K/uL Lymph # (Auto) 1.18 L (1.20-3.40) K/uL [place] # (Auto) 0.68 H (0.11-0.59) K/uL Eos # (Auto) 0.31 (0.00-0.50) K/uL Baso # (Auto) 0.03 (0.00-0.20) K/uL Immature Gran # (Auto) 0.03 (0.01-0.20) K/uL VBG pH 7.43 H (7.36-7.41) VBG pCO2 45 (38-50) mmHg VBG pO2 42 mmHg VBG HCO3 30 mmol/L VBG O2 Saturation 69.5 % VBG Base Excess 4.9 mEq/L Sodium 140 (136-145) mmol/L Potassium 3.9 (3.5-5.1) mmol/L Chloride 104 (98-107) mmol/L Carbon Dioxide 28 (21-32) mmol/L Anion Gap 8 (3-11) BUN 11 (6-23) mg/dl Creatinine 0.66 (0.6-1.2) mg/dl Est Cr Clr Drug Dosing 105.6 ml/min eGFR 115.79 BUN/Creatinine Ratio 16.7 (10-20) Glucose 118 H (70-99(Fasting)) mg/dl Calcium 9.3 (8.6-10.3) mg/dl Total Bilirubin 0.6 (0.2-1.0) mg/dl AST 20 (13-39) U/L ALT 18 (7-52) U/L Alkaline Phosphatase 43 (34-104) U/L Total Protein 7.3 (6.0-8.3) gm/dl Albumin 4.2 (3.4-5.0) gm/dl Globulin 3.1 (2.5-4.0) gm/dl Albumin/Globulin Ratio 1.4 (0.9-2) Procalcitonin < 0.02 (0-0.5) ng/ml Urine Color Yellow Urine Appearance Cloudy A (Clear) Urine pH 7.5 (4.5-7.5) Ur Specific [place] 1.013 (1.000-1.030) Urine Protein Negative (Negative) Urine Glucose (UA) Negative (Negative) Urine Ketones Negative (Negative) Urine Blood Negative (Negative) Urine Nitrite Negative (Negative) Urine Bilirubin Negative (Negative) Urine Urobilinogen Negative (Negative) Ur Leukocyte Esterase Trace H (Negative) Urine WBC (Auto) 0-5 (0-5) /hpf Urine RBC (Auto) 6-10 H (0-2) /hpf U Hyaline Cast (Auto) 0-2 (0-2) /lpf U Epithel Cells (Auto) 3-5 H (0-2) /hpf Urine Bacteria (Auto) None Seen (None Seen) Urine Comment SARS-CoV-2 (PCR) NEGATIVE (Negative) Influenza Type A (PCR) Negative (Neg) Influenza Type B (PCR) Negative (Neg) RSV (RT-PCR) Negative (Neg) Diagnostic Findings EXAM: CT Abdomen and Pelvis With Intravenous Contrast INDICATION: Fever. 1 week postoperative hysterectomy. TECHNIQUE: Axial computed tomography images of the abdomen and pelvis with intravenous contrast. Sagittal and coronal reformatted images were created and reviewed. This CT exam was performed using one or more of the following dose reduction techniques: automated exposure control, adjustment of the mA and/or kV according to patient size, and/or use of iterative reconstruction technique. CONTRAST: 93 ml of Optiray 320 was administered intravenously. COMPARISON: No relevant prior studies available. FINDINGS: Limitations: None. Lung bases: No abnormality noted. Pleural space: No visualized pleural effusion or pneumothorax. Heart: No abnormality noted. Mediastinum: No abnormality noted. ABDOMEN: Liver: No abnormality noted. Gallbladder and bile ducts: Gallstone noted. Pancreas: Homogeneous enhancement. No mass, inflammation or ductal dilation. Spleen: No acute abnormality noted. Adrenals: No acute abnormality noted. Kidneys and ureters: Normal enhancement. No mass, hydronephrosis or visualized stone. Stomach and bowel: No distension or mucosal thickening. No inflammation noted. PELVIS: Appendix: Moderate amounts of stool throughout the colon. There is no definite obstruction. The appendix is not visualized and may have been removed. This the terminal ileum appears somewhat thickened but is collapsed. Bladder: No filling defects to suggest mass or large stone. No inflammation. Reproductive: The uterus has been removed. There is symmetrical appearance of the vaginal cuff. No fluid collection in the operative bed. There is a small collapsed follicle on the left ovary. ABDOMEN and PELVIS: Intraperitoneal space: Free intraperitoneal air noted slightly greater than typical for 1 week postop. Bones/joints: No acute changes. Soft tissues: No acute abnormality noted. Vasculature: No abdominal aortic aneurysm. Lymph nodes: No pathologically enlarged lymph nodes. IMPRESSION: 1. There is no fluid collection noted in the operative bed following hysterectomy. 2. Free intraperitoneal air slightly greater than expected 1 week postop. Correlate with surgical history. If there was any bowel injury, perforation should be considered. 3. The appendix is not identified and may have been removed. What appears to be the terminal ileum is mildly thickened but it is incompletely distended and suboptimally assessed. 4. Cholelithiasis. ACT 112: N/A
[2025-11-20] MEDS ORDERED: ONDANSETRON INJ 2 MG/ML 2 ML VIAL IV PRN (22:03)
[2025-11-20] MEDS: LACTATED RINGER'S 1,000 ML IV SCH (22:52)
[2025-11-20] MEDS: SODIUM CHLORIDE 0.9% 1,000 ML IV SCH (23:37)
[2025-11-20] MEDS: ENOXAPARIN INJ 40 MG/0.4 ML SYR SQ SCH (23:38)
[2025-11-20] MEDS: PIPERACILLIN/TAZOBACTAM 4.5 GM/100 ML BAG IV SCH (23:38)
--- NOTE | 2025-11-21 00:11 | OB/GYN Consultation ---
Date of Consultation November 21, 2025 Assessment & Plan (1) Postoperative fever: (2) Isa-Danlos syndrome: (3) S/P laparoscopic hysterectomy: Patient is a 35-year-old -0-0-7 who is status post laparoscopic total hysterectomy, bilateral salpingectomy on November 15 in [place], [place] for history of endometriosis and pelvic pain. She was discharged on next day and recommended stay around for 3 days, drove back to here yesterday morning, Admitted for low-grade fevers at home highest was 38.1 celcius, Vital signs stable, afebrile here, white blood cell count normal, CT of abdomen pelvis with normal postop findings except slight increase air in abdomen most likely from surgery versus bowel perforation, Abdomen/ pelvis flat, appropriately tender, Kept n.p.o. for possible surgery, No need for EASEMENT MAN surgery, recommend to continue with IV antibiotics, follow-up for air in abdomen, consider repeat CT if she will not improved clinically, recommend follow-up in our office with her records in 2 weeks and 6 weeks, patient is aware that and she will arrange to bring her records including Her op note and pathology results, All questions were answered. (4) History of endometriosis: (5) Grand multiparity: History of Present Illness Reason for Consultation: Low grade fevers and s/p hysterectomy Attending Physician: Timothy Garcia, History of Present Illness Patient is 35-year-old female who has a history of 7 's at home ( from 3 to 18 years range), endometriosis and Isa-Danlos syndrome. She has had 2 surgical interventions for endometriosis in the past. One in [place] one in [facility]. She sought more advanced and expert opinion and went to an Endometriosis center in [place]. Patient had laparoscopic hysterectomy, bilateral salpingectomy on last . She was under the impression that if she was going to be treated for endometriosis more definitively Her ultimate post surgical diagnosis was a fibroid uterus and she had a hysterectomy in addition to appendectomy. She was kept in hospital for overnight and was d/c'd home next day. They stayed in friends house for 3 days and drove back to here. They arrive at 4 am yesterday morning after [address]. Initially she seemed to be doing well postoperatively, however, Alden evening while still in [place] that she started to run a low-grade fever and seemed to have a bit more abdominal pain. Her temp was 100.6 F. They called her surgeon Wednesday morning. They report that they could not be seen in the office but the surgeon did call in amoxicillin and metronidazole. They picked up those prescriptions and drove home. She was just started on the antibiotics yesterday afternoon. Patient continued to have low-grade fevers.100.2 after she took AB/ Seemed to be somewhat drowsy in the car and not fully recuperated from anesthesia. And it was recommended that by her outpatient provider here locally that she be seen in the emergency room. In the emergency room CT of the abdomen question whether there was some increased air in the abdomen much more than would be expected postoperatively. Patient's WBCs were within normal limits other laboratory studies were unrevealing. She was admitted under medicine of concern for postoperative abdominal infection and impending sepsis. She states she was admitted because of fevers not pain. Her pain is minimal and normal for surgery. She has been taking Ibuprofen 800 mg and Percoset and they are helping. She states that she has been able to eat and drink fairly normal so little bit decreased appetite compared to her usual. Does not have any increased pain when she eats. She said she has had 5-6 bowel movements since her surgery. No change in her bladder habits. She has not seen any blood in her stool. She has not had any significant amount of vaginal discharge or bleeding. Urination has been normal. She reports that occasionally she is seeing a little bit of pink discharge on the toilet tissue. No swelling in her hands arms legs or feet. She has some chronic joint pains related to her Isa-Danlos syndrome but this has not ch anged since surgery. Allergies Allergy/AdvReac Type Severity Reaction Status Date / Time No Known Drug Allergies Allergy Verified 07/07/19 11:15 Home Medications Medication Instructions Recorded Confirmed Type multivitamin (Daily Multi-Vitamin 1 tab PO DAILY 02/19/20 11/20/25 History tablet) amoxicillin 875 mg-potassium 1 tab PO BID 11/20/25 11/20/25 History clavulanate 125 mg tablet metronidazole 500 mg tablet 500 mg PO BID 11/20/25 11/20/25 History Patient History Medical History Endometriosis [place] Pelvic floor dysfunction Vaginal lesion SOB (shortness of breath) Calcified lymph nodes Chest wall mass Hay fever Social History Smoking Status: Never smoker Preferred Language: Estonian Feels Safe at Home: Yes Review of Systems Constitutional: as per Subjective / HPI, + fever, + fatigue and + daytime sleepiness Physical Exam Constitutional: WD/WN, vitals as above + ill appearing, + thin and comfortable Gastrointestinal (Abdomen): normal bowel sounds, soft, nontender, no hepatosplenomegaly (flat, appropriately tender, no rebound, no defense) Incisions C/D/I Musculoskeletal: Extremities: extremities normal to inspection LE: NT, no edema Genitourinary: No VB, nor discharge, no odor on perineum nor her underwear. Results & Data Vital Signs (Past 12 Hours) Vital Signs Temp Pulse Pulse Resp BP BP Pulse Ox 11/20/25 21:32 90 12 102/69 95 11/20/25 20:48 96 H 11/20/25 20:00 100 H 17 122/81 96 11/20/25 19:30 93 H 20 120/77 96 11/20/25 19:13 97 H 17 118/71 98 11/20/25 18:53 37.5 C 83 22 125/87 98 11/20/25 17:13 87 17 134/84 99 11/20/25 16:50 102 H 11/20/25 16:43 37.3 C 98 H 14 122/84 99 11/20/25 16:16 37.6 C H 109 H 18 118/79 99 O2 Del Method 11/20/25 21:32 Room Air 11/20/25 20:48 11/20/25 20:00 11/20/25 19:30 11/20/25 19:13 Room Air 11/20/25 18:53 Room Air 11/20/25 17:13 Room Air 11/20/25 16:50 11/20/25 16:43 Room Air 11/20/25 16:16 Room Air Laboratory Results Lab Results 11/20/25 11/20/25 Range/Units 16:23 17:24 WBC 8.80 (4.8-10.8) K/ul RBC 4.40 (4.20-5.40) M/uL Hgb 13.2 (12.0-16.0) g/dL Hct 37.2 (37.0-47.0) % MCV 84.5 (80.0-100.0) fL MCH 30.0 (25.0-34.0) pg MCHC 35.5 (32.0-36.0) g/dL RDW Std Deviation 36.1 L (36.4-46.3) fL RDW Coeff of Ellen 11.8 (11.5-14.5) % Plt Count 344 (130-400) K/uL MPV 9.7 (9.4-12.4) fL Immature Gran % (Auto) 0.3 % Neut % (Auto) 74.8 % Lymph % (Auto) 13.4 % [place] % (Auto) 7.7 % Eos % (Auto) 3.5 % Baso % (Auto) 0.3 % Neut # (Auto) 6.57 H (1.40-6.50) K/uL Lymph # (Auto) 1.18 L (1.20-3.40) K/uL [place] # (Auto) 0.68 H (0.11-0.59) K/uL Eos # (Auto) 0.31 (0.00-0.50) K/uL Baso # (Auto) 0.03 (0.00-0.20) K/uL Immature Gran # (Auto) 0.03 (0.01-0.20) K/uL VBG pH 7.43 H (7.36-7.41) VBG pCO2 45 (38-50) mmHg VBG pO2 42 mmHg VBG HCO3 30 mmol/L VBG O2 Saturation 69.5 % VBG Base Excess 4.9 mEq/L Sodium 140 (136-145) mmol/L Potassium 3.9 (3.5-5.1) mmol/L Chloride 104 (98-107) mmol/L Carbon Dioxide 28 (21-32) mmol/L Anion Gap 8 (3-11) BUN 11 (6-23) mg/dl Creatinine 0.66 (0.6-1.2) mg/dl Est Cr Clr Drug Dosing 105.6 ml/min eGFR 115.79 BUN/Creatinine Ratio 16.7 (10-20) Glucose 118 H (70-99(Fasting)) mg/dl Calcium 9.3 (8.6-10.3) mg/dl Total Bilirubin 0.6 (0.2-1.0) mg/dl AST 20 (13-39) U/L ALT 18 (7-52) U/L Alkaline Phosphatase 43 (34-104) U/L Total Protein 7.3 (6.0-8.3) gm/dl Albumin 4.2 (3.4-5.0) gm/dl Globulin 3.1 (2.5-4.0) gm/dl Albumin/Globulin Ratio 1.4 (0.9-2) Procalcitonin < 0.02 (0-0.5) ng/ml Urine Color Yellow Urine Appearance Cloudy A (Clear) Urine pH 7.5 (4.5-7.5) Ur Specific [place] 1.013 (1.000-1.030) Urine Protein Negative (Negative) Urine Glucose (UA) Negative (Negative) Urine Ketones Negative (Negative) Urine Blood Negative (Negative) Urine Nitrite Negative (Negative) Urine Bilirubin Negative (Negative) Urine Urobilinogen Negative (Negative) Ur Leukocyte Esterase Trace H (Negative) Urine WBC (Auto) 0-5 (0-5) /hpf Urine RBC (Auto) 6-10 H (0-2) /hpf U Hyaline Cast (Auto) 0-2 (0-2) /lpf U Epithel Cells (Auto) 3-5 H (0-2) /hpf Urine Bacteria (Auto) None Seen (None Seen) Urine Comment SARS-CoV-2 (PCR) NEGATIVE (Negative) Influenza Type A (PCR) Negative (Neg) Influenza Type B (PCR) Negative (Neg) RSV (RT-PCR) Negative (Neg) Diagnostic Findings CT ABD/ PELVIS: IMPRESSION: 1. There is no fluid collection noted in the operative bed following hysterectomy. 2. Free intraperitoneal air slightly greater than expected 1 week postop. Correlate with surgical history. If there was any bowel injury, perforation should be considered. 3. The appendix is not identified and may have been removed. What appears to be the terminal ileum is mildly thickened but it is incompletely distended and suboptimally assessed. 4. Cholelithiasis.
[2025-11-21] MEDS: MoRPHine SULFATE 4 MG/ML 1 ML CARP\\VIAL IV PRN (04:10)
[2025-11-21 07:10] LABS: Hematocrit (blood only) 30.6 % (37.0-47.0); Hemoglobin 10.6 g/dL (12.0-16.0); Mean Corpuscular Hemoglobin 29.7 pg (25.0-34.0); Mean Corpuscular Volume 85.7 fL (80.0-100.0); Platelet Count 270 K/uL (130-400); RDW Standard Deviation 36.6 fL (36.4-46.3); Red Blood Count 3.57 M/uL (4.20-5.40); White Blood Count 6.42 K/ul (4.8-10.8)
[2025-11-21 07:53] LABS: Anion Gap 6.0 (3-11); Blood Urea Nitrogen 9.0 mg/dl (6-23); Calcium 8.7 mg/dl (8.6-10.3); Carbon Dioxide 27.0 mmol/L (21-32); Chloride 107.0 mmol/L (98-107); Creatinine Clr Calc Pharmacy 112.2 ml/min; Glucose 90.0 mg/dl (70-99(Fasting)); Potassium 4.3 mmol/L (3.5-5.1); Sodium 140.0 mmol/L (136-145)
--- NOTE | 2025-11-21 13:03 | Surgery Progress Note ---
Date of Service November 21, 2025 Assessment & Plan (1) Status post abdominal hysterectomy: (2) Status post laparoscopic appendectomy: (3) Postoperative fever: (4) Postoperative infection: Plan 35-year-old woman 7 days status post laparoscopic hysterectomy and appendectomy with gynecology in [facility]. She appears to have postoperative infection. On CT scan, there is slightly more air than would normally be found post procedure, however her abdomen is soft with no peritoneal signs. White count is normal. Vital signs are normal. There are no urgent surgical indications from a general surgery standpoint at this time. 11/21/2025 avss abdomen soft, mildly distended in lower abdomen with tenderness in RLQ Plan: no general surgical intervention recommended. Continue conservative management with NPO for bowel rest, IV fluids, IV antibiotics stool softeners and Dulcolax suppository given moderate stool in colon and rectum encouraged ambulation repeat am labs obtain operative records from [place] if able Discussed with Dr. Kraus who agrees with above. Admission and Anticipated Discharge Date Admission Date: November 20, 2025 Subjective feeling a little better today, feeling more alert today pelvic pain increasing, abdominal pain stable mild nausea with the morphine no flatus or bowel movement urinating but feels she might not be emptying enough has not ambulated much Physical Exam Constitutional: WD/WN, vitals as above + thin, cooperative and comfortable; no acute distress and not ill appearing Respiratory: normal respiratory effort, lungs clear to auscultation Cardiovascular: RRR, no murmur, no edema Gastrointestinal (Abdomen): Inspection/Auscultation: abdomen normal to inspection, + abdomen distended (mild in lower abdomen), + abdominal wall ecchymosis (at umbilical incision site) and + abdominal surgical incision (c/d/i with steri strips) Percussion/Palpation: + abdomen tender (lower abdomen more in RLQ) and abdomen soft; abdomen not rigid and abdomen not firm Skin: no rashes, warm and dry Psychiatric: A+Ox3, euthymic affect Results & Data Vital Signs (Past 12 Hours) Vital Signs Temp Pulse Resp BP Pulse Ox O2 Del Method 11/21/25 07:17 36.7 C 83 17 101/59 L 98 Room Air Laboratory Results 11/21/25 11/20/25 11/20/25 Range/Units 06:36 17:24 16:23 WBC 6.42 8.80 (4.8-10.8) K/ul RBC 3.57 L 4.40 (4.20-5.40) M/uL Hgb 10.6 L 13.2 (12.0-16.0) g/dL Hct 30.6 L 37.2 (37.0-47.0) % MCV 85.7 84.5 (80.0-100.0) fL MCH 29.7 30.0 (25.0-34.0) pg MCHC 34.6 35.5 (32.0-36.0) g/dL RDW Std Deviation 36.6 36.1 L (36.4-46.3) fL RDW Coeff of Ellen 11.7 11.8 (11.5-14.5) % Plt Count 270 344 (130-400) K/uL MPV 9.7 9.7 (9.4-12.4) fL Immature Gran % (Auto) 0.3 % Neut % (Auto) 74.8 % Lymph % (Auto) 13.4 % [place] % (Auto) 7.7 % Eos % (Auto) 3.5 % Baso % (Auto) 0.3 % Neut # (Auto) 6.57 H (1.40-6.50) K/uL Lymph # (Auto) 1.18 L (1.20-3.40) K/uL [place] # (Auto) 0.68 H (0.11-0.59) K/uL Eos # (Auto) 0.31 (0.00-0.50) K/uL Baso # (Auto) 0.03 (0.00-0.20) K/uL Immature Gran # (Auto) 0.03 (0.01-0.20) K/uL VBG pH 7.43 H (7.36-7.41) VBG pCO2 45 (38-50) mmHg VBG pO2 42 mmHg VBG HCO3 30 mmol/L VBG O2 Saturation 69.5 % VBG Base Excess 4.9 mEq/L Sodium 140 140 (136-145) mmol/L Potassium 4.3 3.9 (3.5-5.1) mmol/L Chloride 107 104 (98-107) mmol/L Carbon Dioxide 27 28 (21-32) mmol/L Anion Gap 6 8 (3-11) BUN 9 11 (6-23) mg/dl Creatinine 0.61 0.66 (0.6-1.2) mg/dl Est Cr Clr Drug Dosing 112.2 105.6 ml/min eGFR 118.01 115.79 BUN/Creatinine Ratio 14.8 16.7 (10-20) Glucose 90 118 H (70-99(Fasting)) mg/dl Calcium 8.7 9.3 (8.6-10.3) mg/dl Total Bilirubin 0.6 (0.2-1.0) mg/dl AST 20 (13-39) U/L ALT 18 (7-52) U/L Alkaline Phosphatase 43 (34-104) U/L C-Reactive Protein 7.05 H (0-0.5) mg/dl Total Protein 7.3 (6.0-8.3) gm/dl Albumin 4.2 (3.4-5.0) gm/dl Globulin 3.1 (2.5-4.0) gm/dl Albumin/Globulin Ratio 1.4 (0.9-2) Procalcitonin < 0.02 (0-0.5) ng/ml Urine Color Yellow Urine Appearance Cloudy A (Clear) Urine pH 7.5 (4.5-7.5) Ur Specific [place] 1.013 (1.000-1.030) Urine Protein Negative (Negative) Urine Glucose (UA) Negative (Negative) Urine Ketones Negative (Negative) Urine Blood Negative (Negative) Urine Nitrite Negative (Negative) Urine Bilirubin Negative (Negative) Urine Urobilinogen Negative (Negative) Ur Leukocyte Esterase Trace H (Negative) Urine WBC (Auto) 0-5 (0-5) /hpf Urine RBC (Auto) 6-10 H (0-2) /hpf U Hyaline Cast (Auto) 0-2 (0-2) /lpf U Epithel Cells (Auto) 3-5 H (0-2) /hpf Urine Bacteria (Auto) None Seen (None Seen) Urine Comment SARS-CoV-2 (PCR) NEGATIVE (Negative) Influenza Type A (PCR) Negative (Neg) Influenza Type B (PCR) Negative (Neg) RSV (RT-PCR) Negative (Neg)
[2025-11-21 15:20] VITALS: RESP 16
--- NOTE | 2025-11-21 15:58 | Hospitalist Progress Note ---
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 She underwent lap surgical intervention [hysterectomy and appendectomy] on November 15 over there. Initially she was doing well postoperatively but 3 days after she has started to run low-grade fever and have more abdominal pain. They reached out to surgeon on Wednesday morning who prescribed her amoxicillin and metronidazole. Patient picked up those prescriptions and drove home and started antibiotic 1 day before presentation. Patient continued to have low-grade fever and increasing abdominal pain and hence she presented to the ED. She stated she has been able to eat and drink fairly okay since surgery moving some gas but has been having loose stools since surgery. Status post laparoscopic hysterectomy Status post laparoscopic appendectomy Concern for surgical site infection Patient presents with low-grade fever, increasing pain at umbilical lap incision and lower belly. Admitting CTAP reviewed.Will get records from recent admission at [facility]. Follow-up on admitting blood culture, continue with Chris 11/20. Patient has been afebrile, reported increasing pelvic pain today. Discussed with general surgery and gynecology, conservative management for now and continue with antibiotic for now. Gen sx on board, clears for today. Patient later on moved bowel later in the day and reported some improvement in pelvic pain per RN. Continue with pain control. c/w ivf. DVT prophylaxis: lovenox subcu Full code Admission and Anticipated Discharge Date Admission Date: November 20, 2025 Subjective Patient was seen and examined at bedside. Patient was lying in bed, on room air, not in obvious distress. Patient reports increasing pelvic pain, reports diarrhea last evening, reports being able to move some gas. Patient denies vomiting Patient denies cough or sore throat or chest pain. Physical Exam Physical Exam: Constitutional: Alert, ill in appearance, non toxic HEENT: Mucous membranes moist. Sclera clear Neck: Soft, no adenopathy Lungs: Decreased breath sounds, no wheezes, no rales CV: S1-S2, regular Abdomen: Soft, suprapubic tenderness, no rebound, no guarding, no masses, no distention, laparoscopic incisions healing appropriately, no evidence of significant inflammation, erythema, Steri-Strips in place, Extremities: No significant edema Musculoskeletal: No significant joint tenderness Neuro: No focal deficits, slightly drowsy Psych: Cooperative, normal mood Results & Data Results & Data Vital Signs (Past 12 Hours) Vital Signs Temp Pulse Resp BP Pulse Ox O2 Del Method 11/21/25 15:19 37.1 C 84 16 108/71 95 Room Air 11/21/25 07:17 36.7 C 83 17 101/59 L 98 Room Air
[2025-11-21] MEDS: DOCUSATE SODIUM 100 MG CAP PO SCH (20:53)
[2025-11-21] MEDS: ACETAMINOPHEN 325 MG TAB PO PRN (22:02)
[2025-11-22 06:21] LABS: Hematocrit (blood only) 30.8 % (37.0-47.0); Hemoglobin 10.7 g/dL (12.0-16.0); Immature Granulocytes # (auto) 0.02 K/uL (0.01-0.20); Immature Granulocytes % (auto) 0.3 %; Mean Corpuscular Hemoglobin 29.7 pg (25.0-34.0); Mean Corpuscular Volume 85.6 fL (80.0-100.0); Platelet Count 276 K/uL (130-400); RDW Standard Deviation 36.7 fL (36.4-46.3); Red Blood Count 3.60 M/uL (4.20-5.40); White Blood Count 7.41 K/ul (4.8-10.8)
[2025-11-22 06:50] LABS: Anion Gap 5.0 (3-11); Blood Urea Nitrogen 7.0 mg/dl (6-23); Calcium 8.5 mg/dl (8.6-10.3); Carbon Dioxide 27.0 mmol/L (21-32); Chloride 108.0 mmol/L (98-107); Creatinine Clr Calc Pharmacy 124.5 ml/min; Glucose 82.0 mg/dl (70-99(Fasting)); Magnesium 1.9 mg/dl (1.7-2.4); Potassium 4.0 mmol/L (3.5-5.1); Sodium 140.0 mmol/L (136-145)
[2025-11-22 07:20] VITALS: BP 112/78; PULSE 90; TEMP 98.4; O2SAT 97
[2025-11-22] MEDS: IBUPROFEN 200 MG TAB PO PRN (09:40)
--- NOTE | 2025-11-22 10:25 | Surgery Progress Note ---
Date of Service November 22, 2025 Assessment & Plan (1) S/P laparoscopic hysterectomy: Plan: air noted on CT scan just post-operative abdominal exam consistent with recent surgery pain with BMs should resolve F/U with [facility] [employer] surgeon no general surgical issues advance diet as tolerated discharge per medical team Admission and Anticipated Discharge Date Admission Date: November 20, 2025 Subjective main complaint is pain with BMs, likely related to trauma from vaginal hysterectomy no significant abdominal pain taking clears well Review of Systems Constitutional: no fever and no chills Respiratory: no dyspnea Cardiovascular: no chest pain Gastrointestinal: + change in bowel habits (pain with BMs) ; no abdominal pain, no nausea and no vomiting Neurologic: + generalized weakness Psychiatric: no behavioral changes Physical Exam Constitutional: WD/WN, vitals as above Respiratory: normal respiratory effort Cardiovascular: Rate/Rhythm: regular rate and regular rhythm Gastrointestinal (Abdomen): Inspection/Auscultation: abdomen normal to inspection and + abdominal surgical incision; abdomen not distended Percussion/Palpation: + abdomen tender and abdomen soft Musculoskeletal: Head/Neck/Chest: normocephalic and head atraumatic Results & Data Vital Signs (Past 12 Hours) Vital Signs Temp Pulse Resp BP Pulse Ox O2 Del Method 11/22/25 07:17 36.9 C 90 16 112/78 97 Room Air 11/21/25 23:24 37.3 C 81 16 106/66 96 Room Air
--- NOTE | 2025-11-22 13:35 | Discharge Summary ---
Date of Service November 22, 2025 Admission HPI Per Admitting Provider Patient is 35-year-old female who has a history of endometriosis and Isa- Danlos syndrome. She reportedly has had 2 surgical interventions for endometriosis in the past. She sought more advanced and expert opinion on her endometriosis and went to [facility] for evaluation. Patient underwent laparoscopic surgical intervention last . She was under the impression that if she was going to be treated for endometriosis more definitively Her ultimate post surgical diagnosis was a fibroid uterus and she had a hysterectomy in addition to appendectomy. She was discharged from the hospital on the ev ening of her surgery. However, her surgeon recommended that they stay in the [place] area until Wednesday or approximately 72 hours after her surgery. Initially she seemed to be doing well postoperatively, however, Wednesday evening while still in [place] that she started to run a low-grade fever and seemed to have a bit more abdominal pain. They called her surgeon Wednesday. They report that they could not be seen in the office but the surgeon did call in amoxicillin and metronidazole. They picked up those prescriptions and drove home. She was just started on the antibiotics yesterday afternoon. Patient continued to have low-grade fevers. Seemed to be somewhat drowsy and not fully recuperated from anesthesia. And it was recommended that by her outpatient provider here locally that she be seen in the emergency room. In the emergency room CT of the abdomen question whether there was some increased air in the abdomen much more than would be expected postoperatively at this point. There is also some fluid collection and patient did have some peritoneal signs. Patient's WBCs were within normal limits other laboratory studies were unrevealing. She was referred to our service for management of concern for postoperative abdominal infection and impending sepsis. At time of my evaluation patient did look somewhat ill and fatigued. She reports that the highest her fever has been at home was 100.6 degrees. She does feel as though her abdominal pain has been increasing since Wednesday. She states that she has been able to eat and drink fairly normal so little bit decreased appetite compared to her usual. Does not have any increased pain when she eats. She said she has had a few bowel movements since her surgery. No change in her bladder habits. She has not seen any blood in her stool. She has not had any significant amount of vaginal discharge or bleeding. She reports that occasionally she is seeing a little bit of pink discharge on the toilet tissue. No swelling in her hands arms legs or feet. She has some chronic joint pains related to her Isa-Danlos syndrome but this has not changed since surgery. Admission Exam Per Admitting Provider Constitutional: Alert, ill in appearance, mildly toxic HEENT: Mucous membranes moist. Sclera clear Neck: Soft, no adenopathy Lungs: Decreased breath sounds, no wheezes, no rales CV: S1-S2, regular Abdomen: Soft, suprapubic tenderness, positive rebound, mild guarding, no masses, mild distention, laparoscopic incisions healing appropriately, no evidence of significant inflammation, erythema, Steri-Strips in place, Extremities: No significant edema Musculoskeletal: No significant joint tenderness Neuro: No focal deficits, slightly drowsy Psych: Cooperative, normal mood Principal Diagnosis Status post laparoscopic hysterectomy Status post laparoscopic appendectomy Concern for surgical site infection Discharge Exam Constitutional: Alert, awake, on RA, NAD. HEENT: Mucous membranes moist. Sclera clear Neck: Soft, no adenopathy Lungs: Decreased breath sounds, no wheezes, no rales CV: S1-S2, regular Abdomen: Soft, suprapubic tenderness has improved, no rebound, no guarding, no masses, no distention, laparoscopic incisions healing appropriately, no evidence of significant inflammation, erythema, Steri-Strips in place, Extremities: No significant edema Musculoskeletal: No significant joint tenderness Neuro: No focal deficits, slightly drowsy Psych: Cooperative, normal mood Discharge Data Allergies Allergy/AdvReac Type Severity Reaction Status Date / Time No Known Drug Allergies Allergy Verified 07/07/19 11:15 Consultations 11/20/25 19:17 Consult General Surgery Stat 11/20/25 19:25 ED Decision to Admit Stat 11/20/25 20:44 Consult Gynecology Routine 11/21/25 13:05 HIM [Consult Health Information Management] Routine Ordered Studies 11/20/25 16:52 CT abd pelvis IV con only Stat Hospital Course (1) Postoperative infection: (2) Postoperative fever: (3) Peritonitis: (4) Status post abdominal hysterectomy: (5) Status post laparoscopic appendectomy: (6) Endometriosis: (7) Isa-Danlos syndrome: Plan 35-year-old female with PMH of endometriosis, Isa-Danlos syndrome who reportedly had 2 surgical interventions for endometriosis in the past wanted an expert opinion on her endometriosis and went to [facility] for evaluation. She underwent lap surgical intervention [hysterectomy and appendectomy] on November 15 over there. Initially she was doing well postoperatively but 3 days after she has started to run low-grade fever and have more abdominal pain. They reached out to surgeon on Wednesday morning who prescribed her amoxicillin and metronidazole. Patient picked up those prescriptions and drove home and started antibiotic 1 day before presentation. Patient continued to have low-grade fever and increasing abdominal pain and hence she presented to the ED. She stated she has been able to eat and drink fairly okay since surgery moving some gas but has been having loose stools since surgery. Status post laparoscopic hysterectomy Status post laparoscopic appendectomy Concern for surgical site infection Patient presents with low-grade fever, increasing pain at umbilical lap incision and lower belly. Admitting CTAP reviewed. Will get records from recent admission at [facility]. Follow-up on admitting blood culture, continue with Zosyn 11/20 to po atb on dc. Patient has been afebrile, now moving bowels fine, has better pain control, ambulating around ok and tolerated low fiber diet. Ppap Coordinator evaled, conservative Mx, ok w/ atb. Gen sx evaled, ok for dc. Pt advised to f/u on final results of blood culture during her pcp visit within a week of dc. DVT prophylaxis: lovenox subcu Full code Patient is hemodynamically stable and reports she is doing well and would like to go home. Patient is being discharged with the following instructions at the point of discharge: Follow-up with your primary care physician within a week time and likely you will need labs CBC/CMP/magnesium/phosphorus. Continue to take your amoxicillin and metronidazole [as prescribed before] for 7 more days upon discharge. If you have worsening abdominal pain, or fever, or drainage through your laparoscopic incision sites/swelling or redness of the sites, report to emergency. Follow-up on final results of your blood culture drawn while inpatient during your PCP visit within a week time. Follow-up with your gynecology upon discharge. Utilize your oxycodone for pain management, utilize [id number] Colace and Dulcolax as needed for constipation. Take your medications as prescribed. Please make sure that you are able to get your medications today by calling your pharmacy before you leave the hospital so that your treatment continuity is not broken. Home Health Attestation I certify that this patient is under my care and that I, or a physicians assistant coach working with me, had a face to-face encounter that meets the home health [id number] encounter requirements with this patient. The encounter with the patient was in whole, or in part, for the following medical condition, which is the primary reason for home health care (list medical condition): I certify that, based on my findings, the following services are medically necessary home health services: My clinical findings support the need for the above services because: Further, I certify that my clinical findings support that this patient is homebound (i.e. absences from home require considerable and taxing effort and are for medical reasons or worship services or infrequently or of short duration when for other reasons) because: Certification for Home Health Services: Based on the above findings, I certify that this patient is confined to the home and needs intermittent care home care, physical therapy and/or speech therapy or continues to need occupational therapy. The patient is under my care, and I have initiated the establishment of the plan of care. This patient will be followed by a physician who will periodically review the plan of care. Total Time Total Time Spent Total Time Spent (In Minutes): 35 Discharge Plan Discharge Items Patient Disposition: Home - Self-Care Reason For Visit: POST-OP INFECTION Discharge Diagnosis: Status post laparoscopic hysterectomy Status post laparoscopic appendectomy Concern for surgical site infection Condition on Discharge: Fair Activity: Resume your previous activity Non-emergency contact: Primary Care Provider Call non-emergency contact if: you have any medication questions Follow-up/Referrals: Leonarda Mcfarlane DO [Primary Care Provider] - Diet: Low Fiber Addtl Attending Provider Instructions: Follow-up with your primary care physician within a week time and likely you will need labs CBC/CMP/magnesium/phosphorus. Continue to take your amoxicillin and metronidazole [as prescribed before] for 7 more days upon discharge. If you have worsening abdominal pain, or fever, or drainage through your laparoscopic incision sites/swelling or redness of the sites, report to emergency. Follow-up on final results of your blood culture drawn while inpatient during your PCP visit within a week time. Follow-up with your gynecology upon discharge. Utilize your oxycodone for pain management, utilize [id number] Colace and Dulcolax as needed for constipation. Take your medications as prescribed. Please make sure that you are able to get your medications today by calling your pharmacy before you leave the hospital so that your treatment continuity is not broken. Addtl Towel Folder Provider Instructions: f/u in 2 and 6 weeks for [employer] postop visits Bernadine [facility] OFFICE: [phone] Pending Studies at Discharge: Yes Stand-Alone Forms: My [facility], Smoking Cessation Medications and DC Order Prescriptions: Continued multivitamin [Daily Multi-Vitamin] Tablet 1 tab PO DAILY metronidazole 500 mg tablet 500 mg PO BID amoxicillin-pot clavulanate 875-125 mg tablet 1 tab PO BID Discharge Orders: Discharge Order (Routine); Ordered 11/22/25 Ordered By: Tae Miramontes Admission Data Admit Date/Time: 11/20/25 19:53 Attending Provider: Tae Miramontes Admit Provider: Timothy Garcia Primary Care Provider: Leonarda Mcfarlane Other Providers: Thompson Reynolds; Timothy Garcia; Humera Gonzalez
== END 2025-11-22 14:56 | disposition home or self-care (01) | DRG 862 ==
LOC: ED 16:13 → SUATTDRO 19:53 → 3N 19:53